=== PATIENT | female | born 1960 | race Caucasian/White ===

== ENCOUNTER → 2023-06-09 09:31 | Outpatient (REF) | payer MEDICARE, OTHER, SELFPAY ==
[2023-06-09 10:51] LABS: ALT (SGPT) 53 U/L (0-35); AST (SGOT) 46 U/L (14-36); Albumin 4.8 g/dl (3.5-5.0); Alkaline Phosphatase 49 U/L (38-126); Blood Urea Nitrogen 20 mg/dl (7-17); Calcium 10.5 mg/dl (8.4-10.2); Carbon Dioxide 31 mmol/L (22-30); Chloride 100 mmol/L (98-107); Glucose 91 mg/dl (70-99); Potassium 4.7 mmol/L (3.5-5.1); Sodium 138 mmol/L (135-145); Total Bilirubin 0.5 mg/dl (0.2-1.3); Total Protein 7.4 g/dl (6.3-8.2); eGFR > 60.00
[2023-06-09 11:04] LABS: Vitamin D, 25-OH*** 41.5 ng/mL (30-80)
== END ==
LOC: RAD 09:31
PROVIDERS: ATTENDING PHYSICIAN Internal Medicine Rheumatology; FAMILY PHYSICIAN Emergency Medicine
DX: E55.9 Vitamin D deficiency, unspecified (principal); M81.0 Age-related osteoporosis without current pathological fracture
CPT/HCPCS: 36415; 77080; 80053; 82306

== ENCOUNTER → 2023-06-15 06:43 | Outpatient (REF) | payer MEDICARE, OTHER, SELFPAY | LOC: RAD 06:43 | PROVIDERS: ATTENDING PHYSICIAN Surgery; FAMILY PHYSICIAN Emergency Medicine | DX: K59.02 Outlet dysfunction constipation (principal) | CPT/HCPCS: 74270 ==

== ENCOUNTER → 2023-07-27 09:17 | Outpatient (REF) | payer MEDICARE, OTHER, SELFPAY ==
[2023-07-27 10:04] LABS: % Eosinophils 1.5 % (0-6); % Immature Granulocytes 0.4 % (0-0.5); % Lymphocytes 29.6 % (20.5-51.1); % Monocytes 7.5 % (1.7-9.3); Absolute Basophils 0.1 10^3/uL (0-0.2); Absolute Eosinophils 0.1 10^3/uL (0-0.7); Absolute Lymphocytes 1.5 10^3/uL (1.2-3.4); Absolute Monocytes 0.4 10^3/uL (0.1-0.6); Absolute Neutrophils 3.1 10^3/uL (1.4-6.5); Hematocrit 43.9 % (37.0-47.0); Hemoglobin 14.4 g/dL (12.0-16.0); Mean Corp Hgb Conc. 32.8 g/dL (33.0-37.0); Mean Corpuscular Volume 94.4 fL (81.0-99.0); Mean Platelet Volume 10.8 fL (7.4-10.4); Nucleated Red Blood Cells % 0 %; Platelet Count 224 10^3/uL (130-400); Red Blood Cell Count 4.65 10^6/uL (4.20-5.40); Red Cell Dist. Width 13.2 % (11.5-14.5); White Blood Cell Count 5.2 10^3/uL (4.8-10.8)
[2023-07-27 10:39] LABS: Erythrocyte Sed Rate 10 mm/hour (0-20)
[2023-07-27 10:54] LABS: C-Reactive Protein < 5.00 mg/L (0.0-10.00)
[2023-07-27 12:11] LABS: ALT (SGPT) 30 U/L (0-35); AST (SGOT) 34 U/L (14-36); Albumin 4.5 g/dl (3.5-5.0); Alkaline Phosphatase 49 U/L (38-126); Blood Urea Nitrogen 22 mg/dl (7-17); Calcium 10.2 mg/dl (8.4-10.2); Carbon Dioxide 30 mmol/L (22-30); Chloride 100 mmol/L (98-107); Glucose 98 mg/dl (70-99); Potassium 4.9 mmol/L (3.5-5.1); Sodium 139 mmol/L (135-145); Total Bilirubin 0.6 mg/dl (0.2-1.3); Total Protein 7.1 g/dl (6.3-8.2); eGFR > 60.00
== END ==
LOC: REG 09:17
PROVIDERS: ATTENDING PHYSICIAN Internal Medicine Rheumatology; FAMILY PHYSICIAN Emergency Medicine
DX: M06.00 Rheumatoid arthritis without rheumatoid factor, unspecified site (principal); M81.0 Age-related osteoporosis without current pathological fracture
CPT/HCPCS: 36415; 80053; 85025; 85652; 86140

== ENCOUNTER 2023-08-31 06:24 | Outpatient (RCR) | payer MEDICARE, OTHER, SELFPAY | END 2023-08-31 23:59 | disposition home or self-care (01) | LOC: RPT 06:24 | PROVIDERS: ATTENDING PHYSICIAN Obstetrics & Gynecology; FAMILY PHYSICIAN Emergency Medicine | DX: N81.6 Rectocele (principal); K59.00 Constipation, unspecified; M62.81 Muscle weakness (generalized); R27.8 Other lack of coordination; Z73.6 Limitation of activities due to disability | CPT/HCPCS: 97162; 97530 ==

== ENCOUNTER 2023-10-02 11:54 | Outpatient (RCR) | payer MEDICARE, OTHER, SELFPAY | END 2023-10-02 23:59 | disposition home or self-care (01) | LOC: RPT 11:54 | PROVIDERS: ATTENDING PHYSICIAN Obstetrics & Gynecology; FAMILY PHYSICIAN Emergency Medicine | DX: N81.6 Rectocele (principal); K59.00 Constipation, unspecified; M62.81 Muscle weakness (generalized); R27.8 Other lack of coordination; Z73.6 Limitation of activities due to disability | CPT/HCPCS: 97140; 97530 ==

== ENCOUNTER → 2023-10-26 18:35 | Outpatient (REF) | payer MEDICARE, OTHER, SELFPAY | LOC: MRI 18:35 | PROVIDERS: FAMILY PHYSICIAN Emergency Medicine | DX: M26.623 Arthralgia of bilateral temporomandibular joint (principal) | CPT/HCPCS: 70336; A9575 ==

== ENCOUNTER 2023-10-30 10:57 | Outpatient (RCR) | payer MEDICARE, OTHER, SELFPAY | END 2023-10-30 14:14 | disposition home or self-care (01) | LOC: RPT 10:57 | PROVIDERS: ATTENDING PHYSICIAN Obstetrics & Gynecology; FAMILY PHYSICIAN Emergency Medicine | DX: N81.6 Rectocele (principal); K59.00 Constipation, unspecified; M62.81 Muscle weakness (generalized); Z73.6 Limitation of activities due to disability; R27.8 Other lack of coordination | CPT/HCPCS: 97140; 97530 ==

== ENCOUNTER 2023-11-13 07:49 | Inpatient (IN) | payer MEDICARE, OTHER, SELFPAY ==
[2023-11-08 09:44] VITALS: BMI 29.1
[2023-11-08 10:17] LABS: % Basophils 1.1 % (0-2); % Eosinophils 2.9 % (0-6); % Immature Granulocytes 0.2 % (0-0.5); % Lymphocytes 36.2 % (20.5-51.1); % Monocytes 8.7 % (1.7-9.3); % Neutrophils 50.9 % (42.2-75.2); Absolute Basophils 0.1 10^3/uL (0-0.2); Absolute Eosinophils 0.1 10^3/uL (0-0.7); Absolute Lymphocytes 1.6 10^3/uL (1.2-3.4); Absolute Monocytes 0.4 10^3/uL (0.1-0.6); Absolute Neutrophils 2.3 10^3/uL (1.4-6.5); Hematocrit 40.2 % (37.0-47.0); Hemoglobin 13.8 g/dL (12.0-16.0); Mean Corp Hgb Conc. 34.3 g/dL (33.0-37.0); Mean Corpuscular Hgb 31.1 pg (27.0-31.0); Mean Corpuscular Volume 90.5 fL (81.0-99.0); Mean Platelet Volume 10.8 fL (7.4-10.4); Nucleated Red Blood Cells % 0 %; Platelet Count 230 10^3/uL (130-400); Red Blood Cell Count 4.44 10^6/uL (4.20-5.40); Red Cell Dist. Width 12.5 % (11.5-14.5); White Blood Cell Count 4.5 10^3/uL (4.8-10.8)
[2023-11-08 10:25] LABS: PT 12.1 Sec (11.4-14.6)
[2023-11-08 10:26] LABS: APTT 27.3 Sec (23.4-35.0)
[2023-11-08 10:28] LABS: Blood Urea Nitrogen 18 mg/dl (7-17); Calcium 10.4 mg/dl (8.4-10.2); Chloride 105 mmol/L (98-107); Estimated Creatinine Clearance 85 ml/min; Glucose 110 mg/dl (70-99); Potassium 4.8 mmol/L (3.5-5.1); Sodium 143 mmol/L (135-145); eGFR > 60.00
[2023-11-08 10:33] LABS: Carbon Dioxide 25 mmol/L (22-30)
[2023-11-13] VITALS (30 sets, daily range): BP systolic 20–129; BP diastolic 58–97
--- NOTE | 2023-11-13 08:31 | W.SUR.PREOP ---
Pre-Operative Surgical Note
-
I have examined this patient prior to the performance of the scheduled procedure.
The patient's condition is unchanged from the time of the current History and
Physical and the patient is able to undergo the scheduled procedure.
[2023-11-13] MEDS: NSS 500 IV (08:35)
[2023-11-13] MEDS: PERIDEX 0.12% ORAL RINSE 15 ML PO (08:40)
[2023-11-13] MEDS: BACTROBAN NASAL 1 GRAM NASAL (08:40)
[2023-11-13 08:52] LABS: Glucose - Point of Care 110 mg/dl (70-99)
--- NOTE | 2023-11-13 11:18 | W.IMMPOSTOP ---
Surgical Immed Post Op Note
-
Primary Surgeon: Vick Dolan III, MD
Assisting Surgeon: Vahid Suarez MD
Pre-op Diagnosis: Neurogenic Thoracic Outlet Syndrome (L)
Post-op Diagnosis: Neuorgenic Thoracic Outlet Syndrome
Procedure Performed: Left 1st rib resection, anterior scalenectomy
Anesthesia Type: General
Specimen / Cultures: 1st rib, Anterior scalene muscle
Estimated Blood Loss: 25cc
Complications: None
Operative Findings:
A horizontal incision was made in the axilla. Electrocautery used to divide to the subcutaneous tissue. The axilla was bluntly dissected to expose the border of the 1st rib, anterior scalene muscle, axillary A/V, and brachial plexus. Anterior
scalene muscle was transected. Mid portion of 1st rib was freed and resected, ensuring wide margins. Hemostasis was confirmed. The parietal pleura was not obviously violated via saline-valsalva test. A ELIANA drain was placed in the axillary space.
Overlying tissue was closed.
--- NOTE | 2023-11-13 13:14 | OR.RPT ---
Operative Report
Operative Report
Date of Operation: 11/13/2023
Pre Op Diagnosis: Left-sided neurogenic thoracic Outlet Syndrome
Post Op Diagnosis: Left-sided neurogenic thoracic Outlet Syndrome
Procedure: Video-assisted left transaxillary first rib resection
Surgeon: Vick Dolan III, MD
Car Tracer: Vahid Suarez MD PGY-2
Anesthesia: General
Complications: None
Estimated Blood Loss: 25 cc
History and Indications for Procedure: 63-year-old female with neurogenic thoracic outlet syndrome
Procedure in Detail: Sharri Cartwright was correctly identified and placed supine on the operating table. After adequate induction of anesthesia she was positioned into a right lateral decubitus position on a beanbag with her left axilla and the
surgical field. All pressure points were closely inspected and padded with the assistance of the nursing and anesthesia staff. The left arm, axilla and chest were prepped and draped in the usual sterile fashion. Preoperative antibiotics were
administered. A timeout procedure was performed with the nursing and anesthesia staff confirming the patients identity as well as the nature and laterality of the procedure.
At the base of the left axillary hairline a horizontal incision was made. Dissection was carried straight down to the chest wall using electrocautery. I then tunneled up towards the first rib using blunt dissection, staying right along the chest
wall. Patient had a large body habitus and video assistance was used to aid in the visualization and exposure of the structures below. This was done through the open incision with a 10 mm, 30 degree laparoscope. Using a combination of
electrocautery and blunt dissection the subclavian vein, subclavian artery and anterior scalene muscle were exposed clearly over the superior margin of the first rib. Using a periosteal elevator and blunt finger dissection the inferior margin of the
first rib was exposed. Blunt finger dissection was used to gently sweep the pleura away from the under surface of the first rib. A right angle clamp was used with electrocautery to divide the anterior scalene muscle at its insertion onto the first
fib. Dissection was also continued posteriorly on the first rib. The brachial plexus was identified as well as the middle scalene muscle. The middle scalene muscle was divided carefully off of the insertion at the first rib margin. The anterior
and posterior cuts were made on the first rib with the distribution analyst under direct visualization and the intervening segment of rib was removed and sent to pathology. Additional bone margin was taken anteriorly and posteriorly on the first rib with a
rongeur and the space was widely decompressed. The posterior rib edge was well posterior of the brachial plexus. The bone edges anteriorly and posteriorly were inspected under direct visualization and with the laparoscope. The edges were softened
with a rasp. The space was closely inspected with direct visualization and with the laparoscope for hemostasis. Hemostasis was achieved. The space was filled with saline solution and no loss of volume was demonstrated. A Valsalva maneuver was
performed with saline in the wound space and no air bubbles were visualized. The saline was then suctioned away. The wound was then irrigated with saline. A #10 ELIANA drain was left high in the axilla and brought out through a separate stab incision at
the skin.
The wound was then closed in multiple layers and a sterile dressing applied.
The patient tolerated the procedure well and was taken to the PACU in stable condition.
Attestation: I was present and responsible for the entire procedure
Signed:
Vick Dolan III, MD
[facility] Vascular Surgery
[phone] (cell)
--- NOTE | 2023-11-13 13:29 | CON.INTV ---
Addendum entered and electronically signed by Paulie Kelley MD 11/14/23 15:21:
Correction to the note: She does not have right-sided shoulder pain, she actually has left-sided shoulder pain.
Original Note:
Consultation
Consultation Request
Date/Time Consultation Requested: 11/13/2023 - 130
Date/Time Consultation Performed: 11/13/2023 - 1331
Requesting Provider: CANDIDO Ley
Performing Provider: Paulie Kelley MD
Reason for Consultation: s/p rib resection; post-operative medical management
Medical History
-
Chief Complaint: Elective first rib resection
History of Present Illness:
63-year-old female never smoker with a past medical history of thoracic outlet syndrome, migraine headaches, depression, cervical DDD, fibromyalgia, GERD and history of SVT who presents with rib resection due to left-sided thoracic outlet syndrome.
Patient known to vascular surgery service with last visit on 10/11/[address] Dolan. She has a history of neurogenic thoracic outlet syndrome affecting her left brachial plexus, with left shoulder/scapular pain rating into her left arm with
numbness/tingling into the left hand has been present for >20 years. She has undergone PT but this was stopped as her muscles were 'too contracted.' She has significant tightness/spasms of the left side of her neck and around her left scapula.
Prior workup with MRI of her cervical spine + EMG were normal, per reports. Transaxillary first rib resection and anterior scalenectomy were reviewed including its benefits and risks. Of note, the patient is a Shinto and will not accept
blood transfusions. However she is willing to accept non cell-based plasma extenders. Today, she underwent video-assisted left transaxillary first rib resection. There were no complications, EBL was 25 cc. She was transferred to the ICU
postoperatively for further care and composition board press operator services consulted for additional management/recommendations.
Patient seen and evaluated today at bedside after her operation. Heart rate 99, SpO2 90% on the liter per minute nasal cannula and BP 129/85. She has no chest pain or shortness of breath. She does have right-sided shoulder pain and has a DEWATERING FILTERING SUPERVISOR pump
for this which is helping. She says she is developing a migraine and would like her medications for this (maxalt).
PMHx: Thoracic outlet syndrome, migraine headache, depression, gastritis, cervical disc disease, history of dry eyes/mouth, cervical/lumbar spine herniated disc, vestibular disorder, fibromyalgia, GERD, osteoarthritis, history of osteoporosis,
history of SVT
PSHx: Left knee arthroscopy, disc repair x 2, left shoulder surgery, right jaw arthrocentesis, carpal tunnel bilateral surgery, lumbar laminectomy, bilateral jaw surgery
Past Medical History
Past Medical History: Other (Above as per HPI)
Past Surgical History: Other (Above as per HPI)
Social History
Tobacco: Non-smoker (Never smoker)
Alcohol: None
Drug: None
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
Family History
Family History: CAD (Father, mother, paternal grandfather/grandmother), Hypertension (Sibling) and Other (Mother: Pulmonary hypertension; father: Hydrocephalus with shunt + glaucoma)
Allergies / Home Medications
Allergies
Allergy/AdvReac Type Severity Reaction Status Date / Time
No Known Allergies Allergy Verified 11/01/23 14:52
Home Medications
�Medication �Instructions �Recorded �Confirmed �Last Taken �Type
rizatriptan 10 mg tablet (Maxalt) 10 mg PO DAILYPRN PRN migraine 04/07/18 11/13/23 11/12/23 21:00 History
duloxetine 60 mg capsule,delayed 60 mg PO HS Depression 09/13/19 11/01/23 03/01/23 23:00 History
release
atorvastatin 10 mg tablet 10 mg PO DAILY High cholesterol 04/21/21 11/13/23 11/12/23 08:00 History
gabapentin 300 mg capsule 300 mg PO DAILY NERVE PAIN 08/09/21 11/13/23 11/12/23 21:00 History
metformin 500 mg tablet,extended 1,000 mg PO QPM Diabetes 08/09/21 11/13/23 11/12/23 21:00 History
release 24 hr
polyvinyl alcohol-povidone (PF) 1 drops BOTH EYES Q2HPRN PRN dry 08/09/21 11/13/23 11/13/23 06:00 History
1.4 %-0.6 % eye drops in a eye
dropperette (Refresh Classic (PF))
calcium carbonate 600 mg-vitamin 1 tab PO BID Supplement ##0 08/16/21 11/13/23 11/12/23 08:00 History
D3 20 mcg (800 unit) chewable
tablet (Caltrate 600 plus D)
tizanidine 4 mg tablet 4 mg PO BID nerve pain 08/16/21 11/13/23 11/12/23 21:00 History
simethicone 125 mg capsule (Gas 125 mg PO DAILYPRN PRN gas 08/18/21 11/01/23 02/28/23 History
Relief Extra Strength)
denosumab 60 mg/mL subcutaneous 60 mg SC [id number] osteoporosis 02/09/22 11/01/23 11/30/22 History
syringe (Prolia)
gabapentin 300 mg capsule 600 mg PO HS NERVE PAIN 02/09/22 11/01/23 03/01/23 History
multivitamin 1 tab PO DAILY Supplement 02/09/22 11/13/23 11/12/23 08:00 History
ondansetron HCl 4 mg tablet 4 mg PO PRN PRN nausea from 02/09/22 11/01/23 02/28/23 History
migraine
lidocaine 5 % topical patch 1 patch topical DAILY PRN 01/30/23 11/01/23 Unknown History
neck/spine prn pain
oxycodone-acetaminophen 7.5 mg-325 1 tab PO DAILY PRN pain 03/02/23 11/13/23 11/12/23 16:00 History
mg tablet (Percocet)
docusate sodium 100 mg tablet 100 mg PO BID 11/01/23 11/13/23 11/12/23 21:00 History
(Stool Softener)
famotidine 20 mg tablet (Pepcid) 20 mg PO PRN PRN GERD 11/01/23 11/13/23 11/12/23 08:00 History
propranolol 80 mg capsule,24 80 mg PO DAILY 11/01/23 11/13/23 11/12/23 08:00 History
hr,extended release (Inderal LA)
Review of Systems
-
History Source: Patient
All other systems: Negative unless noted
Vitals / Labs / Diagnostic Testing
Vital Signs
Temp Pulse Resp BP Pulse Ox
97.9 F 65 17 124/83 96
11/13/23 08:20 11/13/23 09:45 11/13/23 09:45 11/13/23 08:30 11/13/23 09:30
Diagnostic Testing:
Physical Exam
-
HEENT: Normocephalic and Anicteric
Cardiovascular: S1/S2 and Peripheral Edema (negative)
Respiratory: Wheeze (negative), Rales (negative), Rhonchi (negative) and Non-Labored Respirations
GI: Soft, Non Distended, Non Tender and Normal Bowel Sounds
Neurology: AO x 3 and Tremors (negative)
Skin: Warm and Dry
General: Respiratory Distress (negative), Pain (Right shoulder/scapula region), Chills (negative) and Sweats (negative)
Assessment
-
Assessment: 63-year-old female never smoker with a past medical history of thoracic outlet syndrome, migraine headaches, depression, cervical DDD, fibromyalgia, GERD and history of SVT who presents with rib resection due to left-sided thoracic
outlet syndrome. Patient known to vascular surgery service with last visit on 10/11/[address] Dolan. She has a history of neurogenic thoracic outlet syndrome affecting her left brachial plexus, with left shoulder/scapular pain rating into her
left arm with numbness/tingling into the left hand has been present for >20 years. She has undergone PT but this was stopped as her muscles were 'too contracted.' She has significant tightness/spasms of the left side of her neck and around her
left scapula. Prior workup with MRI of her cervical spine + EMG were normal, per reports. Transaxillary first rib resection and anterior scalenectomy were reviewed including its benefits and risks. Of note, the patient is a Shinto and
will not accept blood transfusions. However she is willing to accept non cell-based plasma extenders. Today, she underwent video-assisted left transaxillary first rib resection. There were no complications, EBL was 25 cc. She was transferred to
the ICU postoperatively for further care and composition board press operator services consulted for additional management/recommendations.
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
osteoporosis, history of SVT
Impression:
#Left-sided neurogenic thoracic outlet syndrome s/p video-assisted left transaxillary first rib resection � POD #0
#Right sided shoulder/scapula pain --> now on DEWATERING FILTERING SUPERVISOR pump post-operatively
#Depression
#Fibromyalgia
#History of SVT
#GERD
#Hx of migraine headaches
Plan:
Postoperative surgical intensive care unit monitoring
Supplemental oxygen as needed to maintain SpO2 >90-94%
prn nebulized bronchodilators
Incentive spirometry encouraged 10x per hour for at least 4 hrs a day
Aspiration precautions
Pain control - DEWATERING FILTERING SUPERVISOR pump
prn maxalt for migraines
Neuro and vascular checks per protocol
Maintain MAP>65
Replete electrolytes with K>4, Mg>2
Maintain euglycemia with goal BG 140-180
Vascular surgery following-correspondence and operative notes reviewed
Transfuse blood products as needed to keep Hb>7g/dL, and plt>50k (given post-operative status)
DVT prophylaxis
Early nutrition
Early mobilization
Critical care statement: A total of 44 minutes of critical care time was provided for this patient today. This includes management of unstable vital signs, evaluation of the patient at bedside, reviewing the patient's pertinent medical records
including radiographs, microbiology, laboratory evaluations, and discussion with primary team, consultants, pharmacy, nutrition, physical therapy, case management, charge nurse, critical care nursing, and respiratory therapy.
[2023-11-13] MEDS: DILAUDID 0.5 MG IV (13:57)
[2023-11-13 14:02] LABS: Glucose - Point of Care 105 mg/dl (70-99)
[2023-11-13] MEDS: DILAUDID 0.25 MG IV ×3 (14:11→14:43)
[2023-11-13] MEDS: NSS 1000 IV (14:36)
[2023-11-13 14:40] LABS: Hematocrit 40.2 % (37.0-47.0); Hemoglobin 13.5 g/dL (12.0-16.0); Mean Corp Hgb Conc. 33.6 g/dL (33.0-37.0); Mean Corpuscular Hgb 30.5 pg (27.0-31.0); Mean Corpuscular Volume 90.7 fL (81.0-99.0); Mean Platelet Volume 10.8 fL (7.4-10.4); Platelet Count 202 10^3/uL (130-400); Red Blood Cell Count 4.43 10^6/uL (4.20-5.40); Red Cell Dist. Width 12.5 % (11.5-14.5); White Blood Cell Count 7.5 10^3/uL (4.8-10.8)
[2023-11-13 14:44] LABS: Blood Urea Nitrogen 10 mg/dl (7-17); Calcium 9.3 mg/dl (8.4-10.2); Carbon Dioxide 27 mmol/L (22-30); Chloride 106 mmol/L (98-107); Estimated Creatinine Clearance 85 ml/min; Glucose 127 mg/dl (70-99); Potassium 4.4 mmol/L (3.5-5.1); Sodium 145 mmol/L (135-145); eGFR > 60.00
[2023-11-13 15:21] LABS: Magnesium 2.1 mg/dl (1.6-2.3); Phosphorus 2.8 mg/dl (2.5-4.5)
--- NOTE | 2023-11-13 15:25 | PTCARENOTE ---
Received pt postop from PACU via bed awake and alert. Left arm elevate on pillow. Left upper extremity cool with good capillary refill. Palpable radial pulses, doppler ulnar pulses. Left lateral chest/back dressing CDI, ELIANA drain to bulb suction with
SS fluid. Right hand #20g protective catheter with 0.9NSS@80ml/hr, right FA #18g protective catheter flushed and patent. +pedal pulses. No edema. Lungs CTA anteriorly. 2 liters nasal cannula. +BSX4. Bladder scanned for 257ml's. Protective right hip
SBD removed, partially off. She was informed of theplan of care regarding bedrest tonight then OOB in the AM after the surgeon assesses her at the bedside. Also informed of the use of Hydromorphone LOG YARD MANAGER for pain management. She verbalized her
understanding. Oriented to the unit and the use of the call trevino. Safe environment maintained.
--- NOTE | 2023-11-13 15:26 | TRANSFER ---
Patient transferred to ICU, report to [facility], phone and [facility] bedside. Patient restful, mild yo moderate pain to left axilla/chest with movement. VSS, dressings and drain checked. Adrian Lancaster RN BSN.
[2023-11-13] MEDS: DILAUDID PCA 30 IV (15:50)
[2023-11-13] MEDS: OFIRMEV 100 IV (16:48)
[2023-11-13] MEDS: MAXALT MLT (ORALLY DISINTEGRATING) 10 MG PO (17:22)
[2023-11-13 17:54] LABS: Glucose - Point of Care 120 mg/dl (70-99)
[2023-11-13] MEDS: GLUCOPHAGE XR EXTENDED RELEASE 1000 MG PO (18:27)
[2023-11-13] MEDS: COLACE 100 MG PO (19:40)
[2023-11-13] MEDS: OSCAL 500 + D 500 MG PO (19:40)
[2023-11-13] MEDS: ZANAFLEX 4 MG PO (19:40)
[2023-11-13] MEDS: HEPARIN 5000 UNITS SC (19:40)
--- NOTE | 2023-11-13 20:00 | PTCARENOTE ---
Rec'd pt resting in bed, at bedside, has chronic facial pain, FIELD SERVICE ENGINEER dilaudid- 0 basal, able to rec 0.2mg q10min for hourly max 1.2, pain under control, ARRIAZA, follows commands, ST, bp stable, left chest incis w/ scant ses drainage noted, ELIANA
draining 20ml SES fluid, left rad pulse palpabe, left ulnar pulse via doppler, left hand warm, pulses ox on left finger, good sensation left arm, q1h NV checks left arm maintained, O2 2 liters nc, lungs clear, sat 94, enc to use IS- reaches 1000ml,
hypo bowel sounds,no bm, abd obese, soft, no n/v,poor appetite, purewick placed- voided 200ml yellow urine
[2023-11-13] MEDS: MIRALAX 17 GRAMS PO (20:23)
--- NOTE | 2023-11-13 20:24 | PTCARENOTE ---
miralax 17gm po given for constipation asrequested
[2023-11-13] MEDS: CYMBALTA DELAYED RELEASE 60 MG PO (21:04)
[2023-11-13] MEDS: NEURONTIN 600 MG PO (21:04)
[2023-11-13 21:15] LABS: Glucose - Point of Care 135 mg/dl (70-99)
[2023-11-13] MEDS: MYLICON 80 MG PO (21:22)
--- NOTE | 2023-11-13 21:23 | PTCARENOTE ---
simethicone 80 mg po given for gas
[2023-11-14] VITALS (41 sets, daily range): BP systolic 72–147; BP diastolic 49–91; BMI 29.4
--- NOTE | 2023-11-14 | PTCARENOTE ---
Sys reviewed, changes noted, CHG bath done, linens changed
[2023-11-14] MEDS: NSS 1000 IV (01:01)
[2023-11-14 03:37] LABS: Hematocrit 36.2 % (37.0-47.0); Hemoglobin 12.3 g/dL (12.0-16.0); Mean Corpuscular Hgb 31.8 pg (27.0-31.0); Mean Corpuscular Volume 93.5 fL (81.0-99.0); Mean Platelet Volume 10.8 fL (7.4-10.4); Platelet Count 174 10^3/uL (130-400); Red Blood Cell Count 3.87 10^6/uL (4.20-5.40); Red Cell Dist. Width 12.7 % (11.5-14.5); White Blood Cell Count 8.4 10^3/uL (4.8-10.8)
[2023-11-14 03:47] LABS: INR 1.08; PT 13.8 Sec (11.4-14.6)
[2023-11-14 03:48] LABS: APTT 23.4 Sec (23.4-35.0)
[2023-11-14 03:59] LABS: Blood Urea Nitrogen 9 mg/dl (7-17); Calcium 8.9 mg/dl (8.4-10.2); Carbon Dioxide 25 mmol/L (22-30); Chloride 108 mmol/L (98-107); Estimated Creatinine Clearance 99 ml/min; Glucose 116 mg/dl (70-99); Potassium 4.6 mmol/L (3.5-5.1); Sodium 141 mmol/L (135-145); eGFR > 60.00
[2023-11-14] MEDS: OFIRMEV 100 IV ×3 (04:19→20:00)
--- NOTE | 2023-11-14 04:20 | PTCARENOTE ---
lobo reviewed, ofirmev 1gm iv given for R faciial pain
--- NOTE | 2023-11-14 07:52 | W.PN.VS ---
Addendum entered and electronically signed by Rich Alfaro MD 11/14/23 08:18:
Seen and examined with ROSA Hameed and ROSA Hoover earlier this a.m. Patient without significant complaints, some expected postoperative pain. Reasonably controlled. No numbness or weakness in the left arm. Left upper extremity/axilla incision
site/dressing clean dry and intact. No hematoma noted. No chest wall fullness or crepitus. ELIANA drain serosanguineous total of 75 cc over 24 hours. Chest x-ray reviewed. I do not see any obvious pneumothorax. Drain reasonably position. Plan/ As
noted and discussed below. Continue ELIANA drain for today.
Original Note:
Today's Communication / Plan
-
Seen and assessed with Dr. Alfaro
Assessment/Plan
-
POD #1 left first rib resection
Plan:
-Transition DIRECTOR OF RESIDENTIAL SERVICES to oral medications
-Out of bed/ambulate
-Physical therapy
-Transfer to telemetry
-Continue drain for today
-Likely DC tomorrow if pain well-controlled
Subjective Data
-
Date of Service: November 14, 2023
Patient seen at bedside this a.m. Dr. Alfaro. Patient offers no complaints at this time. No events overnight. DIRECTOR OF RESIDENTIAL SERVICES running for pain control
Objective Data
-
Vital Signs
Temp Pulse Resp BP Pulse Ox
98 F 72 12 99/63 96
11/14/23 04:00 11/14/23 06:00 11/14/23 06:00 11/14/23 06:00 11/14/23 06:00
Intake and Output
11/13/23 11/14/23 11/15/23
06:59 06:59 06:59
Intake Total 1918.2 / 1918.2
Output Total 375 / 375
Balance 1543.2 / 1543.2
Intake:
Oral fluids 209 / 209
IV fluids (Total) 1509.2 / 1509.2
NS 150 / 150
Nss 1,000 ml @ 80 mls/hr IV . 1315 / 1315
[id number] CRISTAL Rx#:[id number]
Nss 500 ml @ 40 mls/hr IV . 40 / 40
[id number] CRISTAL Rx#:[id number]
DIRECTOR OF RESIDENTIAL SERVICES dilaudid 4.2 / 4.2
IV piggybacks 200 / 200
Output:
Drain Output (Total) 75 / 75
Left Chest Blaise-Flowers 75 / 75
Urine, Voided 300 / 300
Other:
How many times incontinent 1
MODERATE amount urine
Lab Results
11/14/23 03:24
11/14/23 03:24
Calcium 8.9 mg/dl (8.4-10.2) 11/14/23 03:24
Phosphorus 2.8 mg/dl (2.5-4.5) 11/13/23 14:19
Magnesium 2.1 mg/dl (1.6-2.3) 11/13/23 14:19
Physical Exam
-
AAOx3
No tachypnea on room air
No tachycardia
Axillary surgical site dressing clean, dry, intact. No drainage noted, soft
Left hand warm, palpable radial pulse
--- NOTE | 2023-11-14 08:00 | PTCARENOTE ---
Pt AOx3, assisted OOB to chair, tolerated well. c/o L chest/flank pain when coughing, minimal coughing observed. Dressing observed w/ small amount of old drainage noted. L extremity neurovascular checks wnl. IS encouraged. LSCTA, 93% on RA. L ELIANA w/
sersang output, 35ml emptied at this time. Assisted pt to use the bathroom, Purewick removed. HR NSR, ST 110-130's when ambulating.
[2023-11-14 08:08] LABS: Glucose - Point of Care 110 mg/dl (70-99)
--- NOTE | 2023-11-14 08:12 | W.PN.INTV ---
Today's Communication / Plan
Recommendations
Up OOB as tolerated
Pain control
Maintain MAP >65, SBP >90�100
Postop management as per vascular surgery
PT/OT
Patient is stable for transfer out of ICU to telemetry. This was confirmed with vascular surgery. Senior Net Engineer/Pulmonary service will now sign off. Please reconsult if there are any additional questions/concerns, or if patient's respiratory status
deteriorates.
Assessment
-
Assessment: 63-year-old female never smoker with a past medical history of thoracic outlet syndrome, migraine headaches, depression, cervical DDD, fibromyalgia, GERD and history of SVT who presents with rib resection due to left-sided thoracic
outlet syndrome. Patient known to vascular surgery service with last visit on 10/11/[address] Dolan. She has a history of neurogenic thoracic outlet syndrome affecting her left brachial plexus, with left shoulder/scapular pain rating into her
left arm with numbness/tingling into the left hand has been present for >20 years. She has undergone PT but this was stopped as her muscles were 'too contracted.' She has significant tightness/spasms of the left side of her neck and around her
left scapula. Prior workup with MRI of her cervical spine + EMG were normal, per reports. Transaxillary first rib resection and anterior scalenectomy were reviewed including its benefits and risks. Of note, the patient is a Protestant and
will not accept blood transfusions. However she is willing to accept non cell-based plasma extenders. Today, she underwent video-assisted left transaxillary first rib resection. There were no complications, EBL was 25 cc. She was transferred to
the ICU postoperatively for further care and field crop ii farmworker services consulted for additional management/recommendations.
Chronic conditions AIR CARGO SPECIALIST: Thoracic outlet syndrome, migraine headache, depression, gastritis, cervical disc disease, history of dry eyes/mouth, cervical/lumbar spine herniated disc, vestibular disorder, fibromyalgia, GERD, osteoarthritis, history of
osteoporosis, history of SVT
Impression:
#Left-sided neurogenic thoracic outlet syndrome s/p video-assisted left transaxillary first rib resection � POD #1
#Left sided shoulder/scapula pain
#Depression
#Fibromyalgia
#History of SVT
#GERD
#Hx of migraine headaches
Plan:
Postoperative management as per vascular surgery
Supplemental oxygen as needed to maintain SpO2 >90-94% - wean as tolerated
prn nebulized bronchodilators
Incentive spirometry encouraged 10x per hour for at least 4 hrs a day
Aspiration precautions
Pain control but monitor BP, keeping SBP>90-100mmHg, and MAP>65
prn maxalt for migraines
Neuro and vascular checks per protocol
Maintain MAP>65
Replete electrolytes with K>4, Mg>2
Maintain euglycemia with goal BG 140-180
Vascular surgery following-correspondence and operative notes reviewed
Transfuse blood products as needed to keep Hb>7g/dL, and plt>50k (given post-operative status)
DVT prophylaxis
Early nutrition
Early mobilization
Patient is stable for transfer out of ICU to telemetry. This was confirmed with vascular surgery. Senior Net Engineer/Pulmonary service will now sign off. Thank you for allowing us to be involved in the care of this patient. Please reconsult if there
are any additional questions/concerns, or if patient's respiratory status deteriorates.
Total time spent today was 55 minutes for this encounter. Time includes reviewing laboratory test/imaging results, reviewing pertinent medical records, obtaining and reviewing medical history, performing an appropriate exam, ordering medications,
tests and procedures. Time also includes documentation of this encounter, coordinating patient care and communicating with other healthcare professionals. Total time does not include separately billed tests performed on this date of service.
Subjective Dataa
Subjective Data
Date of Service:
Date of Service: November 14, 2023
Chief Complaint: Senior Net Engineer Follow Up
Subjective:
Patient seen and evaluated today at bedside. Having severe pain in her left shoulder blade. Also developing a migraine. Currently on 2 L/min nasal cannula. Heart rate 78, saturating 97% on 2L/min and BP 90/64. She is awake, alert, answering all
questions appropriately. Patient's , David, at bedside. She denies chest pain, abdominal pain, nausea, fevers or chills.
Review of Systems
General: Other (Negative unless mentioned above)
Objective Data
Data Reviewed
Vital Signs / I&O / Oxygen:
Vital Signs
Temp Pulse Resp BP Pulse Ox
98.7 F 72 12 99/63 96
11/14/23 08:11 11/14/23 06:00 11/14/23 06:00 11/14/23 06:00 11/14/23 06:00
Intake and Output
11/13/23 11/14/23 11/15/23
06:59 06:59 06:59
Intake Total 1918.2 / 1918.2
Output Total 375 / 375
Balance 1543.2 / 1543.2
SaO2 96
Nasal Cannula flow liters per 2
minute
Physical Exam
General: Respiratory Distress (negative), Pain (Left shoulder blade/shoulder), Chills (negative) and Sweats (negative)
HEENT: Normocephalic, Anicteric and Moist Mucous Membranes
Cardiovascular: S1-S2 and Peripheral Edema (negative)
Respiratory: Wheeze (negative), Crackles (negative), Rhonchi (negative) and Non-Labored Respirations
GI: Soft, Non Distended, Non Tender and Normal Bowel Sounds
Neurology: AO x 3 and Tremors (negative)
Skin: Warm and Dry
Labs/Micro/Reports
Lab Data
11/14/23 03:24
11/14/23 03:24
Laboratory Results
11/14/23
03:24
PT 13.8
INR 1.08
APTT 23.4
[2023-11-14] MEDS: LIPITOR 10 MG PO (08:44)
[2023-11-14] MEDS: OSCAL 500 + D 500 MG PO ×2 (08:44→21:04)
[2023-11-14] MEDS: NEURONTIN 300 MG PO (08:45)
[2023-11-14] MEDS: COLACE 100 MG PO ×2 (08:46→21:03)
[2023-11-14] MEDS: HEPARIN 5000 UNITS SC ×2 (08:46→21:03)
[2023-11-14] MEDS: THERAGRAN 1 TABLET PO (08:47)
[2023-11-14] MEDS: ZANAFLEX 4 MG PO (08:47)
--- NOTE | 2023-11-14 09:00 | PTCARENOTE ---
Dilaudid SALES ASSOCIATE FISHING dc'd and IVFs capped as ordered. Pain management discussed w/ patient.
[2023-11-14] MEDS: MAXALT MLT (ORALLY DISINTEGRATING) 10 MG PO (09:09)
[2023-11-14] MEDS: INDERAL LA PO (10:12)
[2023-11-14] MEDS: NSS 250 IV (10:30)
--- NOTE | 2023-11-14 11:12 | PTCARENOTE ---
Pt's BP low 87/57 hr 60's, pt states she feels slightly drowsy, pt states this happens to her after taking Zanaflex which she had this morning. Propranolol held this morning. Donna PABON notified, who came to assess pt at bedside. NS 250ml bolus
given as ordered. Pt reported visual changes initially on PA's exam, but those cleared almost immediately. Pt states this happens to her at times prior to a migraine. Plan to given dose of Ofirmev, pt already received Maxalt this morning. BP
improved to 99/57, resting comfortably, easily arousable. Neurovascular checks remain wnl.
[2023-11-14 11:57] LABS: Glucose - Point of Care 133 mg/dl (70-99)
[2023-11-14] MEDS: ProAmatine 5 MG PO (12:32)
--- NOTE | 2023-11-14 13:33 | CM ---
CM following re: discharge planning.
Reviewed pt's chart, met with pt.
Pt is a 63 year old female, admitted with primary dx of POD #1 left first rib resection.
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 Pt has no previous hx of VN/SNF and does have a pair of crutches & spc for use if needed.
PT and OT evaluations on hold due to pt being hypotensive.
Pharmacy: [facility] on [address] [place] & maintenance meds are filled thru [facility]
PCP-Olinda Flynn
D/C plan: home with anticipated no needs or VN if recommended by PT.
CM will fallow with discharge plan updates as hospitalization progresses
[2023-11-14] MEDS: DILAUDID 2 MG PO (14:10)
--- NOTE | 2023-11-14 15:00 | PTCARENOTE ---
Blood pressure improved. 2mg PO Dilaudid given for pain. Assisted OOB to chair, tolerated well. Plan to transfer to .
[2023-11-14] MEDS: PERCOCET 5/325 1 TABLET PO (16:25)
--- NOTE | 2023-11-14 16:51 | PTCARENOTE ---
1620: Patient arrived to 2S. Patient tearful and complaining of 10/10 pain in L shoulder. Patient states that she is 'unable to move L shoulder because it is too much pain'. Medicated per MAY. Patient reports 'a little bit of decreased sensation to
L hand'. Pulses palpable with doppler in L wrist. Donna Hameed INSURANCE ANALYST to bedside. Care ongoing at this time.
[2023-11-14 17:23] LABS: Glucose - Point of Care 87 mg/dl (70-99)
[2023-11-14] MEDS: DILAUDID PCA 30 IV (17:38)
[2023-11-14] MEDS: D5/0.45%NACL 1000 IV (17:48)
[2023-11-14] MEDS: GLUCOPHAGE XR EXTENDED RELEASE 1000 MG PO (18:16)
[2023-11-14] MEDS: NEURONTIN 600 MG PO (21:04)
[2023-11-14] MEDS: CYMBALTA DELAYED RELEASE 60 MG PO (21:04)
[2023-11-14 21:23] LABS: Glucose - Point of Care 119 mg/dl (70-99)
[2023-11-15] VITALS (7 sets, daily range): BP systolic 95–130; BP diastolic 64–88; PULSE 110
[2023-11-15 01:50] LABS: % Basophils 0.4 % (0-2); % Eosinophils 1.7 % (0-6); % Immature Granulocytes 0.2 % (0-0.5); % Lymphocytes 25.9 % (20.5-51.1); % Monocytes 9.5 % (1.7-9.3); % Neutrophils 62.3 % (42.2-75.2); Absolute Eosinophils 0.2 10^3/uL (0-0.7); Absolute Lymphocytes 2.4 10^3/uL (1.2-3.4); Absolute Monocytes 0.9 10^3/uL (0.1-0.6); Absolute Neutrophils 5.7 10^3/uL (1.4-6.5); Hematocrit 35.5 % (37.0-47.0); Hemoglobin 11.9 g/dL (12.0-16.0); Mean Corp Hgb Conc. 33.5 g/dL (33.0-37.0); Mean Corpuscular Hgb 30.4 pg (27.0-31.0); Mean Corpuscular Volume 90.8 fL (81.0-99.0); Mean Platelet Volume 10.4 fL (7.4-10.4); Nucleated Red Blood Cells % 0 %; Platelet Count 185 10^3/uL (130-400); Red Blood Cell Count 3.91 10^6/uL (4.20-5.40); Red Cell Dist. Width 12.8 % (11.5-14.5); White Blood Cell Count 9.1 10^3/uL (4.8-10.8)
--- NOTE | 2023-11-15 02:00 | PTCARENOTE ---
TT Vascular oncall re pts tachycardia. Physician oncall ordered labs, EKG and IVF bolus. HR decreased for upper 120's to low 100's. Labs WNL. EKG shows sinus tach. pt resting comfortably at this time, assessment ongoing.
[2023-11-15] MEDS: NSS 500 IV (02:26)
[2023-11-15 06:33] LABS: Hematocrit 35.8 % (37.0-47.0); Hemoglobin 11.7 g/dL (12.0-16.0); Mean Corp Hgb Conc. 32.7 g/dL (33.0-37.0); Mean Corpuscular Hgb 30.2 pg (27.0-31.0); Mean Corpuscular Volume 92.3 fL (81.0-99.0); Mean Platelet Volume 11.1 fL (7.4-10.4); Platelet Count 179 10^3/uL (130-400); Red Blood Cell Count 3.88 10^6/uL (4.20-5.40); Red Cell Dist. Width 12.8 % (11.5-14.5)
[2023-11-15 07:21] LABS: Blood Urea Nitrogen 9 mg/dl (7-17); Carbon Dioxide 27 mmol/L (22-30); Chloride 104 mmol/L (98-107); Estimated Creatinine Clearance 99 ml/min; Glucose 122 mg/dl (70-99); Potassium 3.8 mmol/L (3.5-5.1); Sodium 139 mmol/L (135-145); eGFR > 60.00
[2023-11-15 08:01] LABS: Glucose - Point of Care 120 mg/dl (70-99)
[2023-11-15] MEDS: OSCAL 500 + D 500 MG PO ×2 (08:08→21:21)
[2023-11-15] MEDS: COLACE 100 MG PO ×2 (08:08→21:20)
[2023-11-15] MEDS: NEURONTIN 300 MG PO (08:08)
[2023-11-15] MEDS: HEPARIN 5000 UNITS SC ×2 (08:08→21:23)
[2023-11-15] MEDS: LIPITOR 10 MG PO (08:08)
[2023-11-15] MEDS: THERAGRAN 1 TABLET PO (08:08)
[2023-11-15] MEDS: MAXALT MLT (ORALLY DISINTEGRATING) 10 MG PO ×2 (08:09→10:11)
[2023-11-15] MEDS: INDERAL LA PO (08:14)
--- NOTE | 2023-11-15 08:38 | W.PN.VS ---
Today's Communication / Plan
-
Seen and assessed with Dr. Dolan
Assessment/Plan
-
POD #2 left first rib resection
Plan:
-Continue VENEER PRESS OPERATOR
-Add scheduled Toradol, PRN Tums if needed
-Add Zofran for nausea
-P.o. Tylenol
-Chest xray this am
-OT/PT if tolerates
-Out of bed/ambulate if tolerates
-Continue drain for today
Subjective Data
-
Date of Service: November 15, 2023
Patient seen at bedside this a.m. with Dr. Dolan. Patient complains of left shoulder pain that is different from her preop pain. Denies numbness/tingling/decreased sensation. Remained on VENEER PRESS OPERATOR overnight
Objective Data
-
Vital Signs
Temp Pulse Resp BP Pulse Ox
98.8 F 107 16 95/64 96
11/15/23 08:01 11/15/23 08:01 11/15/23 08:01 11/15/23 08:01 11/15/23 08:01
Intake and Output
11/14/23 11/15/23 11/16/23
06:59 06:59 06:59
Intake Total 1918.2 / 1998.2 2360.8 / 2360.8
Output Total 375 / 375 615 / 615
Balance 1543.2 / 1623.2 1745.8 / 1745.8
Intake:
Oral fluids 209 / 209 960 / 960
IV fluids (Total) 1509.2 / 1589.2 1300.8 / 1300.8
NS 150 / 150
Nss 1,000 ml @ 80 mls/hr IV . 1315 / 1395 240 / 240
[id number] CRISTAL Rx#:[id number]
Nss 500 ml @ 40 mls/hr IV . 40 / 40
[id number] CRISTAL Rx#:[id number]
VENEER PRESS OPERATOR dilaudid 4.2 / 4.2 0.8 / 0.8
IV piggybacks 200 / 200 100 / 100
Output:
Drain Output (Total) 75 / 75 135 / 135
Left Chest Blaise-Flowers 75 / 75 135 / 135
Urine, Voided 300 / 300 480 / 480
Other:
Number of approximated MODERATE 1
amounts of urine
Number of approximated LARGE 1
amounts of urine
How many times incontinent 1
MODERATE amount urine
Lab Results
11/15/23 04:51
11/15/23 04:51
Calcium 9.0 mg/dl (8.4-10.2) 11/15/23 04:51
Phosphorus 2.8 mg/dl (2.5-4.5) 11/13/23 14:19
Magnesium 2.1 mg/dl (1.6-2.3) 11/13/23 14:19
Physical Exam
-
AAOx3
No tachypnea on room air
No tachycardia at this time
Axillary surgical site dressing clean, dry, intact. No drainage noted, soft
Left hand warm, palpable radial pulse
[2023-11-15] MEDS: TORADOL 30 MG IV ×4 (10:11→23:47)
[2023-11-15 12:07] LABS: Glucose - Point of Care 148 mg/dl (70-99)
--- NOTE | 2023-11-15 14:45 | CM ---
Case management following for discharge planning
POD #2 left first rib resection
PT/OT recs - outpatient PT - will need Rx
CM will continue to follow for d/c needs
Plan - anticipate home with outpatient services when medically ready
[2023-11-15 16:40] LABS: Glucose - Point of Care 77 mg/dl (70-99)
[2023-11-15] MEDS: GLUCOPHAGE XR EXTENDED RELEASE 1000 MG PO (17:27)
[2023-11-15] MEDS: NEURONTIN 600 MG PO (21:21)
[2023-11-15] MEDS: CYMBALTA DELAYED RELEASE 60 MG PO (21:21)
[2023-11-15] MEDS: TYLENOL 650 MG PO (21:36)
[2023-11-15 22:08] LABS: Glucose - Point of Care 103 mg/dl (70-99)
[2023-11-16] MEDS: MAXALT MLT (ORALLY DISINTEGRATING) 10 MG PO (03:13)
[2023-11-16] MEDS: MIRALAX 17 GRAMS PO (03:13)
[2023-11-16 03:25] VITALS: BP 142/85
[2023-11-16] MEDS: TORADOL 30 MG IV ×2 (05:56→13:10)
[2023-11-16 06:26] LABS: Hemoglobin 11.6 g/dL (12.0-16.0); Mean Corp Hgb Conc. 34.1 g/dL (33.0-37.0); Mean Corpuscular Hgb 31.5 pg (27.0-31.0); Mean Corpuscular Volume 92.4 fL (81.0-99.0); Mean Platelet Volume 11.1 fL (7.4-10.4); Platelet Count 179 10^3/uL (130-400); Red Blood Cell Count 3.68 10^6/uL (4.20-5.40); Red Cell Dist. Width 12.6 % (11.5-14.5); White Blood Cell Count 4.9 10^3/uL (4.8-10.8)
[2023-11-16 06:55] LABS: Blood Urea Nitrogen 8 mg/dl (7-17); Calcium 9.7 mg/dl (8.4-10.2); Carbon Dioxide 28 mmol/L (22-30); Chloride 104 mmol/L (98-107); Estimated Creatinine Clearance 99 ml/min; Glucose 117 mg/dl (70-99); Potassium 3.8 mmol/L (3.5-5.1); Sodium 141 mmol/L (135-145); eGFR > 60.00
[2023-11-16 07:05] VITALS: BP 127/84
--- NOTE | 2023-11-16 07:34 | W.PN.VS ---
Addendum entered and electronically signed by Rich Alfaro MD 11/16/23 10:57:
Seen and examined earlier this a.m. with SENIOR APPLICATION SECURITY CONSULTANT Kiko and ROSA Hameed. Agree with findings as noted below. Patient was doing well. She noted her pain was improved. Her preoperative left upper extremity/scapular symptoms seem to be resolved
postoperatively. Left axillary incision is clean dry and intact. ELIANA drainage serous/minimally serosanguineous. Drainage significantly decreased with 30 cc over the last 24 hours. Left hand is warm with good motor/sensory function and palpable
radial pulse. Plan/as discussed and noted below. Likely discontinue drain as long as no significant further drainage this morning. And PT/OT/discharge planning.
Original Note:
Today's Communication / Plan
-
Seen and assessed Dr. Alfaro
Assessment/Plan
-
POD #3 left first rib resection
Plan:
-Switch MD OPHTHALMOLOGIST to p.o.'s
-Continue scheduled Toradol, PRN Tums if needed
-P.o. Tylenol as needed
-OT/PT
-Out of bed/ambulate
-Continue drain for now, will reassess this afternoon
Subjective Data
-
Date of Service: November 16, 2023
Patient seen sitting out to the chair this morning feeling very well. Patient is upbeat, has no complaints.
Objective Data
-
Vital Signs
Temp Pulse Resp BP Pulse Ox
98.3 F 100 14 142/85 93
11/16/23 03:25 11/16/23 03:25 11/16/23 04:00 11/16/23 03:25 11/16/23 04:00
Intake and Output
11/15/23 11/16/23 11/17/23
06:59 06:59 06:59
Intake Total 2360.8 / 2360.8 1520 / 1520
Output Total 615 / 615 30 / 30
Balance 1745.8 / 1745.8 1490 / 1490
Intake:
Oral fluids 960 / 960 1040 / 1040
IV fluids (Total) 1300.8 / 1300.8 480 / 480
Nss 1,000 ml @ 80 mls/hr IV . 240 / 240
[id number] CRISTAL Rx#:[id number]
MD OPHTHALMOLOGIST dilaudid 0.8 / 0.8
IV piggybacks 100 / 100
Output:
Drain Output (Total) 135 / 135 30 / 30
Left Chest Blaise-Flowers 135 / 135 30 / 30
Urine, Voided 480 / 480
Other:
Number of approximated MODERATE 1 3
amounts of urine
Number of approximated LARGE 1
amounts of urine
Lab Results
11/16/23 06:04
11/16/23 06:04
Calcium 9.7 mg/dl (8.4-10.2) 11/16/23 06:04
Phosphorus 2.8 mg/dl (2.5-4.5) 11/13/23 14:19
Magnesium 2.1 mg/dl (1.6-2.3) 11/13/23 14:19
Physical Exam
-
AAOx3
No tachypnea on room air
No tachycardia at this time
Axillary surgical site clean, dry, intact. No drainage noted, soft
ELIANA site dressing replaced
Left hand warm, palpable radial pulse
[2023-11-16 07:57] LABS: Glucose - Point of Care 116 mg/dl (70-99)
[2023-11-16] MEDS: INDERAL LA 80 MG PO (09:44)
[2023-11-16] MEDS: DILAUDID 2 MG PO ×3 (09:44→22:57)
[2023-11-16] MEDS: NEURONTIN 300 MG PO (09:44)
[2023-11-16] MEDS: OSCAL 500 + D 500 MG PO ×2 (09:44→20:27)
[2023-11-16] MEDS: THERAGRAN 1 TABLET PO (09:45)
[2023-11-16] MEDS: HEPARIN 5000 UNITS SC ×2 (09:45→20:27)
[2023-11-16] MEDS: LIPITOR 10 MG PO (09:45)
[2023-11-16] MEDS: COLACE 100 MG PO ×2 (09:45→20:27)
--- NOTE | 2023-11-16 11:16 | PN.CDI ---
CDI
- -
CDI:
Physician Documentation Request
Admit Date: 11/13/23 07:49
Dear Vascular,
Please review the following and provide your response in the progress notes.
Clinical Indicators:
The diagnosis of pleural effusion and atelectasis were included in the signed 11/14 CXR.
- 11/14 CXR 'Small left pleural effusion. Minor atelectasis at left lung base'
- 11/12-11/13 Incentive spirometry 1000ml
- RN assessments indicate shallow respiratory patterns
Please indicate in your progress notes if you are in agreement that the above diagnosis is valid for this patient:
____ - Pleural effusion and/or atelectasis is/are a valid diagnosis (Please include it in your progress notes)
____ - Pleural effusion and/or atelectasis is not a valid diagnosis for this patient
____ - Pleural effusion and/or atelectasis is not yet confirmed but remains a suspected condition
____ - Other
Use of terms such as suspected, likely, concern for, or probable are acceptable for a diagnosis that is being evaluated, monitored or treated as if it exists and can be coded in the inpatient setting, when documented at the time of discharge.
Thank you,
Jada Perdomo RN
CDI Specialist
Please use your independent medical judgment in providing your response.
[2023-11-16 12:07] LABS: Glucose - Point of Care 76 mg/dl (70-99)
--- NOTE | 2023-11-16 14:04 | W.PN.UPDATE ---
Update Note
Progress Note Update
Left lateral drain removed, site CDI. Patient tolerated well.
[2023-11-16 15:09] VITALS: BP 108/68
[2023-11-16] MEDS: GLUCOPHAGE XR EXTENDED RELEASE 1000 MG PO (17:30)
[2023-11-16 17:31] LABS: Glucose - Point of Care 73 mg/dl (70-99)
[2023-11-16 21:16] LABS: Glucose - Point of Care 100 mg/dl (70-99)
[2023-11-16] MEDS: NEURONTIN 600 MG PO (21:55)
[2023-11-16] MEDS: CYMBALTA DELAYED RELEASE 60 MG PO (21:55)
[2023-11-16] MEDS: DULCOLAX 10 MG RECTAL (22:12)
[2023-11-16 23:00] VITALS: BP 132/82
[2023-11-17] MEDS: MAXALT MLT (ORALLY DISINTEGRATING) 10 MG PO (03:08)
[2023-11-17 03:12] VITALS: BP 139/79
[2023-11-17 07:22] VITALS: BP 134/79
[2023-11-17] MEDS: DILAUDID 2 MG PO ×2 (07:24→12:11)
[2023-11-17 07:29] LABS: Glucose - Point of Care 91 mg/dl (70-99)
[2023-11-17 07:39] LABS: Hematocrit 35.8 % (37.0-47.0); Mean Corp Hgb Conc. 33.5 g/dL (33.0-37.0); Mean Corpuscular Hgb 30.6 pg (27.0-31.0); Mean Corpuscular Volume 91.3 fL (81.0-99.0); Mean Platelet Volume 10.7 fL (7.4-10.4); Platelet Count 210 10^3/uL (130-400); Red Blood Cell Count 3.92 10^6/uL (4.20-5.40); Red Cell Dist. Width 12.9 % (11.5-14.5); White Blood Cell Count 4.6 10^3/uL (4.8-10.8)
[2023-11-17 08:01] LABS: Troponin I < 0.012 ng/ml
[2023-11-17] MEDS: LIPITOR 10 MG PO (08:02)
[2023-11-17] MEDS: NEURONTIN 300 MG PO (08:02)
[2023-11-17] MEDS: OSCAL 500 + D 500 MG PO (08:02)
[2023-11-17] MEDS: HEPARIN 5000 UNITS SC (08:02)
[2023-11-17] MEDS: THERAGRAN 1 TABLET PO (08:02)
[2023-11-17] MEDS: COLACE 100 MG PO (08:02)
[2023-11-17] MEDS: INDERAL LA 80 MG PO (08:02)
[2023-11-17 08:22] LABS: Blood Urea Nitrogen 14 mg/dl (7-17); Calcium 9.9 mg/dl (8.4-10.2); Carbon Dioxide 33 mmol/L (22-30); Chloride 102 mmol/L (98-107); Estimated Creatinine Clearance 85 ml/min; Glucose 103 mg/dl (70-99); Magnesium 1.8 mg/dl (1.6-2.3); Potassium 4.3 mmol/L (3.5-5.1); Sodium 141 mmol/L (135-145); eGFR > 60.00
[2023-11-17 09:27] VITALS: BP 126/76; PULSE 84
--- NOTE | 2023-11-17 09:41 | W.PN.VS ---
Addendum entered and electronically signed by Rich Alfaro MD 11/17/23 09:55:
Seen and examined with ROSA Hameed. Agree with findings as noted below. Patient overall feels much better. No complaints. She notes her left arm preoperative symptoms are significantly improved. Denies any chest pain or shortness of breath. Left
axillary incision clean dry and intact. No hematoma. Good range of motion left upper extremity. Left hand is pink and warm and well-perfused with palpable radial pulse. Plan/as discussed and noted below.
Original Note:
Today's Communication / Plan
-
Patient seen evaluated bedside with Dr. Rich Alfaro, below plan reviewed with attending.
Assessment/Plan
-
POD #4 left first rib resection
Plan:
-Continue current pain management regimen
-P.o. Tylenol as needed
-OT/PT
-Out of bed/ambulate
-Discharge today
Subjective Data
-
Date of Service: November 17, 2023
Patient seen and examined at bedside, she offers no complaints and continues to report great improvement in left shoulder movement and pain. 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
that this has happened to her in the past which is why she was prescribed Inderal one of her home medications. She denies accompanying chest pain, shortness of breath, chest pressure, radiating arm pain, or unusual jaw pain. She states episode was
similar to all her past episodes which usually resolves on its own and just feels like a slight flutter. Currently she has no complaints.
Objective Data
-
Vital Signs
Temp Pulse Resp BP Pulse Ox
98.2 F 74 18 134/79 94
11/17/23 07:22 11/17/23 07:22 11/17/23 07:22 11/17/23 07:22 11/17/23 08:00
Intake and Output
11/16/23 11/17/23 11/18/23
06:59 06:59 06:59
Intake Total 1520 / 1520 420 / 420
Output Total
Balance 1490 / 1490 420 / 420
Intake:
Oral fluids 1040 / 1040 420 / 420
IV fluids (Total) 480 / 480
Output:
Drain Output (Total)
Left Chest Blaise-Flowers
Other:
Number of approximated MODERATE 3 3
amounts of urine
Lab Results
11/17/23 07:25
11/17/23 07:25
Calcium 9.9 mg/dl (8.4-10.2) 11/17/23 07:25
Phosphorus 2.8 mg/dl (2.5-4.5) 11/13/23 14:19
Magnesium 1.8 mg/dl (1.6-2.3) 11/17/23 07:25
Physical Exam
-
AAOx3
No tachypnea on room air
No tachycardia at this time
Axillary surgical site clean, dry, intact. No drainage noted. ELIANA drain removal dressing CDI.
Left hand warm, palpable radial pulse
--- NOTE | 2023-11-17 11:11 | CM ---
Case management following for discharge planning
Chart reviewed. Met with pt at bedside
Poss discharge today
Will have ride home with sister
PT - recs outpatient PT - will need Rx
Discussed IMM
Plan - anticipate home with outpatient PT when medically ready
[2023-11-17 11:22] VITALS: BP 110/70
[2023-11-17 11:52] LABS: Glucose - Point of Care 85 mg/dl (70-99)
--- NOTE | 2023-11-17 13:46 | W.[place]-PDMP ---
[place]-PDMP
-
Checked the [place]- Prescription Drug Monitoring Program website, no red flags identified; safe to proceed with prescription. Additionally, spoke to Dr. Morgan's office staff Luiza, this is the patient's pain management clinic, and localized that I
would be prescribing a short duration of p.o. Dilaudid for her immediate postoperative pain management. Patient states she only has a few Percocets left from her most recent prescription from Dr. Morgan's office and she vocalized understanding
that she is not to take that medication while taking the narcotic pain medication I prescribed. Additionally, we have instructed her to hold her home medication of Zanaflex until she is no longer requiring the p.o. Dilaudid narcotic medication.
She vocalized understanding of all instructions and all of this was relayed to Dr. Morgan's office.
--- NOTE | 2023-11-17 13:49 | W.DS.TRANS ---
DC Summary - Sports Medicine Specialist
-
Discharge Instructions:
Discharge Diagnosis/Procedures Video-assisted left transaxillary first rib
resection
Diet As tolerated,Diabetic, Carb Controlled
Activity No strenuous activity
Driving Restrictions Not until seen by your Dr
Bathing Restrictions OK to Shower
Other Services PT
Instructions:
Stand-Alone Forms: DC Instr - Vascular OR
Changes to Home Medications: Yes
Discharge Medications:
DC Medications w/original date entered in [employer]
rizatriptan 10 mg tablet (Maxalt) 10 mg PO DAILYPRN PRN migraine 04/07/18
duloxetine 60 mg capsule,delayed release 60 mg PO HS Depression 09/13/19
atorvastatin 10 mg tablet 10 mg PO DAILY High cholesterol 04/21/21
gabapentin 300 mg capsule 300 mg PO DAILY NERVE PAIN 08/09/21
metformin 500 mg tablet,extended release 24 hr 1,000 mg PO QPM Diabetes 08/09/21
polyvinyl alcohol-povidone (PF) 1.4 %-0.6 % eye drops in a dropperette (Refresh Classic (PF)) 1 drops BOTH EYES Q2HPRN PRN dry eye 08/09/21
calcium carbonate 600 mg-vitamin D3 20 mcg (800 unit) chewable tablet (Caltrate 600 plus D) 1 tab PO BID Supplement ##0 08/16/21
tizanidine 4 mg tablet 4 mg PO BID nerve pain 08/16/21
simethicone 125 mg capsule (Gas Relief Extra Strength) 125 mg PO DAILYPRN PRN gas 08/18/21
denosumab 60 mg/mL subcutaneous syringe (Prolia) 60 mg SC [id number] osteoporosis 02/09/22
gabapentin 300 mg capsule 600 mg PO HS NERVE PAIN 02/09/22
multivitamin 1 tab PO DAILY Supplement 02/09/22
ondansetron HCl 4 mg tablet 4 mg PO PRN PRN nausea from migraine 02/09/22
lidocaine 5 % topical patch 1 patch topical DAILY PRN neck/spine prn pain 01/30/23
oxycodone-acetaminophen 7.5 mg-325 mg tablet (Percocet) 1 tab PO DAILY PRN pain 03/02/23
docusate sodium 100 mg tablet (Stool Softener) 100 mg PO BID Constipation 11/01/23
famotidine 20 mg tablet (Pepcid) 20 mg PO PRN PRN GERD 11/01/23
propranolol 80 mg capsule,24 hr,extended release (Inderal LA) 80 mg PO DAILY Heart Disease/Condition 11/01/23
hydromorphone 2 mg tablet 2 mg PO Q4HPRN PRN moderate pain #24 tabs 11/17/23
Home Medication Changes
Held:
oxycodone-acetaminophen 7.5 mg-325 mg tablet (Percocet) 1 tab PO DAILY PRN pain 03/02/23
tizanidine 4 mg tablet 4 mg PO BID nerve pain 08/16/21
Started:
hydromorphone 2 mg tablet 2 mg PO Q4HPRN PRN moderate pain #24 tabs 11/17/23
Pending Results: No
--- NOTE | 2023-11-20 10:50 | W.PN.UPDATE ---
Update Note
Progress Note Update
CDI:
Physician Documentation Request
Admit Date: 11/13/23 07:49
Please review the following and provide your response in the progress notes.
Clinical Indicators:
The diagnosis of pleural effusion and atelectasis were included in the signed 11/14 CXR.
- 11/14 CXR 'Small left pleural effusion. Minor atelectasis at left lung base'
- 11/12-11/13 Incentive spirometry 1000ml
- RN assessments indicate shallow respiratory patterns
Please indicate in your progress notes if you are in agreement that the above diagnosis is valid for this patient:
____-atelectasis is a valid diagnosis
== END 2023-11-17 14:11 | disposition home or self-care (01) | DRG 29 ==
LOC: 2 SOUTH 07:49
PROVIDERS: Nurse Practitioner; Nurse Practitioner Acute Care; Student in an Organized Health Care Education/Training Program; ADMITTING PHYSICIAN Surgery Vascular Surgery; CONSULT PHYSICIAN Internal Medicine Critical Care Medicine; FAMILY PHYSICIAN Emergency Medicine
PROC: 0PB10ZZ Excision of 1 to 2 Ribs, Open Approach (ICD-10-PCS; 2023-11-13)
DX: G54.0 Brachial plexus disorders (principal); J98.11 Atelectasis; G43.909 Migraine, unspecified, not intractable, without status migrainosus; K21.9 Gastro-esophageal reflux disease without esophagitis; M79.7 Fibromyalgia; M81.0 Age-related osteoporosis without current pathological fracture; R73.03 Prediabetes; E78.00 Pure hypercholesterolemia, unspecified; F32.A Depression, unspecified; K29.70 Gastritis, unspecified, without bleeding; Z79.84 Long term (current) use of oral hypoglycemic drugs; Z79.899 Other long term (current) drug therapy
CPT/HCPCS: 88304; 21705; 36415; 71045; 71046; 80048; 82962; 83735; 84100; 84484; 85025; 85027; 85610; 85730; 87070; 93005; 97162; 97166; 97530

== ENCOUNTER 2023-12-04 14:43 | Outpatient (RCR) | payer MEDICARE, OTHER, SELFPAY | END 2023-12-04 23:59 | disposition home or self-care (01) | LOC: RPT 14:43 | PROVIDERS: ATTENDING PHYSICIAN Surgery Vascular Surgery; FAMILY PHYSICIAN Emergency Medicine | DX: Z47.89 Encounter for other orthopedic aftercare (principal); M54.14 Radiculopathy, thoracic region; M25.512 Pain in left shoulder; Z73.6 Limitation of activities due to disability; M62.81 Muscle weakness (generalized) | CPT/HCPCS: 97010; 97110; 97140; 97162; 97530 ==

== ENCOUNTER → 2023-12-30 13:37 | Outpatient (REF) | payer MEDICARE, OTHER, SELFPAY | LOC: MRI 3T 13:37 | PROVIDERS: ATTENDING PHYSICIAN Psychiatry & Neurology Neurology; FAMILY PHYSICIAN Emergency Medicine | DX: G54.0 Brachial plexus disorders (principal); M54.14 Radiculopathy, thoracic region | CPT/HCPCS: 72146 ==

== ENCOUNTER 2024-01-03 09:53 | Outpatient (RCR) | payer MEDICARE, OTHER, SELFPAY | END 2024-01-03 23:59 | disposition home or self-care (01) | LOC: RPT 09:53 | PROVIDERS: ATTENDING PHYSICIAN Surgery Vascular Surgery; FAMILY PHYSICIAN Emergency Medicine | DX: Z47.89 Encounter for other orthopedic aftercare (principal); M54.14 Radiculopathy, thoracic region; M25.512 Pain in left shoulder; Z73.6 Limitation of activities due to disability; M62.81 Muscle weakness (generalized); M47.812 Spondylosis without myelopathy or radiculopathy, cervical region; M19.012 Primary osteoarthritis, left shoulder; R26.89 Other abnormalities of gait and mobility | CPT/HCPCS: 97010; 97110; 97112; 97140 ==

== ENCOUNTER 2024-01-29 10:02 | Outpatient (RCR) | payer MEDICARE, OTHER, SELFPAY | END 2024-01-29 23:59 | disposition home or self-care (01) | LOC: RPT 10:02 | PROVIDERS: ATTENDING PHYSICIAN Surgery Vascular Surgery; FAMILY PHYSICIAN Emergency Medicine | DX: Z47.89 Encounter for other orthopedic aftercare (principal); M54.14 Radiculopathy, thoracic region; M25.512 Pain in left shoulder; Z73.6 Limitation of activities due to disability; M62.81 Muscle weakness (generalized); M54.2 Cervicalgia | CPT/HCPCS: 97010; 97110; 97112; 97140; 97530 ==

== ENCOUNTER 2024-02-07 13:36 | Outpatient (RCR) | payer MEDICARE, OTHER, SELFPAY | END 2024-02-07 23:59 | disposition home or self-care (01) | LOC: RPT 13:36 | PROVIDERS: ATTENDING PHYSICIAN Surgery Vascular Surgery; FAMILY PHYSICIAN Emergency Medicine | DX: Z47.89 Encounter for other orthopedic aftercare (principal); M54.14 Radiculopathy, thoracic region; M25.512 Pain in left shoulder; Z73.6 Limitation of activities due to disability; M62.81 Muscle weakness (generalized); M54.2 Cervicalgia; R26.89 Other abnormalities of gait and mobility | CPT/HCPCS: 97110 ==

== ENCOUNTER → 2024-03-19 09:17 | Outpatient (REF) | payer MEDICARE, OTHER, SELFPAY ==
[2024-03-19 10:21] LABS: % Basophils 1.2 % (0-2); % Eosinophils 2.6 % (0-6); % Immature Granulocytes 0.9 % (0-0.5); % Lymphocytes 40.1 % (20.5-51.1); % Monocytes 7.9 % (1.7-9.3); % Neutrophils 47.3 % (42.2-75.2); Absolute Basophils 0.1 10^3/uL (0-0.2); Absolute Eosinophils 0.1 10^3/uL (0-0.7); Absolute Lymphocytes 1.7 10^3/uL (1.2-3.4); Absolute Monocytes 0.3 10^3/uL (0.1-0.6); Hematocrit 43.2 % (37.0-47.0); Hemoglobin 14.3 g/dL (12.0-16.0); Mean Corp Hgb Conc. 33.1 g/dL (33.0-37.0); Mean Corpuscular Hgb 30.3 pg (27.0-31.0); Mean Corpuscular Volume 91.5 fL (81.0-99.0); Mean Platelet Volume 10.9 fL (7.4-10.4); Nucleated Red Blood Cells % 0 %; Platelet Count 216 10^3/uL (130-400); Red Blood Cell Count 4.72 10^6/uL (4.20-5.40); White Blood Cell Count 4.3 10^3/uL (4.8-10.8)
[2024-03-19 10:37] LABS: Erythrocyte Sed Rate 9 mm/hour (0-20)
[2024-03-19 10:50] LABS: ALT (SGPT) 29 U/L (0-35); AST (SGOT) 34 U/L (14-36); Albumin 4.7 g/dl (3.5-5.0); Alkaline Phosphatase 56 U/L (38-126); Blood Urea Nitrogen 16 mg/dl (7-17); Calcium 10.2 mg/dl (8.4-10.2); Carbon Dioxide 32 mmol/L (22-30); Chloride 99 mmol/L (98-107); Glucose 98 mg/dl (70-99); Potassium 5.1 mmol/L (3.5-5.1); Sodium 138 mmol/L (135-145); Total Bilirubin 0.5 mg/dl (0.2-1.3); Total Protein 7.2 g/dl (6.3-8.2); eGFR > 60.00
[2024-03-19 10:52] LABS: C-Reactive Protein < 5.00 mg/L (0.0-10.00)
[2024-03-19 11:09] LABS: Vitamin D, 25-OH*** 45.5 ng/mL (30-80)
[2024-03-19 11:20] LABS: Hepatitis B Surface Antigen Negative (Negative)
[2024-03-19 11:38] LABS: Hepatitis B Core Ab, Total Negative (Negative); Hepatitis B Surface Antibody Negative; Hepatitis C Antibody Negative (Negative)
[2024-03-21 14:41] LABS: Quantiferon TB Gold Plus Negative (Negative)
== END ==
LOC: REG 09:17
PROVIDERS: ATTENDING PHYSICIAN Internal Medicine Rheumatology; FAMILY PHYSICIAN Emergency Medicine
DX: E55.9 Vitamin D deficiency, unspecified (principal); M06.00 Rheumatoid arthritis without rheumatoid factor, unspecified site; M81.0 Age-related osteoporosis without current pathological fracture
CPT/HCPCS: 36415; 80053; 82306; 85025; 85652; 86140; 86480; 86704; 86706; 86803; 87340

== ENCOUNTER 2024-03-29 07:08 | Outpatient (RCR) | payer MEDICARE, OTHER, SELFPAY | END 2024-03-29 23:59 | disposition home or self-care (01) | LOC: RPT 07:08 | PROVIDERS: ATTENDING PHYSICIAN Surgery Vascular Surgery; FAMILY PHYSICIAN Emergency Medicine | DX: Z47.89 Encounter for other orthopedic aftercare (principal); M54.14 Radiculopathy, thoracic region; M25.512 Pain in left shoulder; M62.81 Muscle weakness (generalized); Z73.6 Limitation of activities due to disability; M54.2 Cervicalgia; R26.89 Other abnormalities of gait and mobility | CPT/HCPCS: 97110; 97112; 97530 ==

== ENCOUNTER 2024-04-29 09:03 | Outpatient (RCR) | payer MEDICARE, OTHER, SELFPAY | END 2024-04-29 23:59 | disposition home or self-care (01) | LOC: RPT 09:03 | PROVIDERS: ATTENDING PHYSICIAN Surgery Vascular Surgery; FAMILY PHYSICIAN Emergency Medicine | DX: Z47.89 Encounter for other orthopedic aftercare (principal); M54.14 Radiculopathy, thoracic region; M25.512 Pain in left shoulder; M62.81 Muscle weakness (generalized); Z73.6 Limitation of activities due to disability; M54.2 Cervicalgia; R26.89 Other abnormalities of gait and mobility | CPT/HCPCS: 97110 ==

== ENCOUNTER 2024-05-17 09:01 | Outpatient (RCR) | payer MEDICARE, OTHER, SELFPAY | END 2024-05-17 23:59 | disposition home or self-care (01) | LOC: RPT 09:01 | PROVIDERS: ATTENDING PHYSICIAN Surgery Vascular Surgery; FAMILY PHYSICIAN Emergency Medicine | DX: Z47.89 Encounter for other orthopedic aftercare (principal); M54.14 Radiculopathy, thoracic region; M25.512 Pain in left shoulder; M62.81 Muscle weakness (generalized); Z73.6 Limitation of activities due to disability; M54.2 Cervicalgia; R26.89 Other abnormalities of gait and mobility | CPT/HCPCS: 97110; 97112 ==

== ENCOUNTER 2024-06-21 07:10 | Outpatient (RCR) | payer MEDICARE, OTHER, SELFPAY | END 2024-06-21 23:59 | disposition home or self-care (01) | LOC: RPT 07:10 | PROVIDERS: ATTENDING PHYSICIAN Surgery Vascular Surgery; FAMILY PHYSICIAN Emergency Medicine | DX: Z47.89 Encounter for other orthopedic aftercare (principal); M54.14 Radiculopathy, thoracic region; M25.512 Pain in left shoulder; M62.81 Muscle weakness (generalized); Z73.6 Limitation of activities due to disability; M54.2 Cervicalgia; R26.89 Other abnormalities of gait and mobility | CPT/HCPCS: 97110; 97112; 97140; 97530 ==

== ENCOUNTER 2024-07-31 09:33 | Outpatient (RCR) | payer MEDICARE, OTHER, SELFPAY | END 2024-07-31 23:59 | disposition home or self-care (01) | LOC: RPT 09:33 | PROVIDERS: ATTENDING PHYSICIAN Surgery Vascular Surgery; FAMILY PHYSICIAN Emergency Medicine | DX: Z47.89 Encounter for other orthopedic aftercare (principal); M54.14 Radiculopathy, thoracic region; M25.512 Pain in left shoulder; M62.81 Muscle weakness (generalized); Z73.6 Limitation of activities due to disability; M54.2 Cervicalgia; R26.89 Other abnormalities of gait and mobility | CPT/HCPCS: 97110; 97530 ==

== ENCOUNTER 2024-08-07 14:58 | Outpatient (RCR) | payer MEDICARE, OTHER, SELFPAY | END 2024-08-07 23:59 | disposition home or self-care (01) | LOC: RPT 14:58 | PROVIDERS: ATTENDING PHYSICIAN Surgery Vascular Surgery; FAMILY PHYSICIAN Emergency Medicine | DX: Z47.89 Encounter for other orthopedic aftercare (principal); M54.14 Radiculopathy, thoracic region; M25.512 Pain in left shoulder; M62.81 Muscle weakness (generalized); Z73.6 Limitation of activities due to disability; M54.2 Cervicalgia; R26.89 Other abnormalities of gait and mobility | CPT/HCPCS: 97110; 97112; 97140; 97530 ==

== ENCOUNTER → 2024-08-12 13:05 | Outpatient (REF) | payer MEDICARE, OTHER, SELFPAY ==
[2024-08-12 15:17] LABS: ALT (SGPT) 29 U/L (0-35); AST (SGOT) 26 U/L (14-36)
== END ==
LOC: REG 13:05
PROVIDERS: ATTENDING PHYSICIAN Podiatrist; FAMILY PHYSICIAN Emergency Medicine
DX: B35.1 Tinea unguium (principal)
CPT/HCPCS: 36415; 84450; 84460

== ENCOUNTER → 2024-09-17 09:22 | Outpatient (REF) | payer MEDICARE, OTHER, SELFPAY ==
[2024-09-17 10:12] LABS: Hematocrit 42.8 % (37.0-47.0); Hemoglobin 14.2 g/dL (12.0-16.0); Mean Corp Hgb Conc. 33.2 g/dL (33.0-37.0); Mean Corpuscular Volume 93.4 fL (81.0-99.0); Nucleated Red Blood Cells % 0 %; Platelet Count 258 10^3/uL (130-400); Red Cell Dist. Width 13.3 % (11.5-14.5)
[2024-09-17 11:05] LABS: C-Reactive Protein < 5.00 mg/L (0.0-10.00)
[2024-09-17 11:20] LABS: ALT (SGPT) 23 U/L (0-35); AST (SGOT) 25 U/L (14-36); Albumin 4.5 g/dl (3.5-5.0); Alkaline Phosphatase 36 U/L (38-126); Blood Urea Nitrogen 20 mg/dl (7-17); Calcium 10.0 mg/dl (8.4-10.2); Carbon Dioxide 28 mmol/L (22-30); Chloride 107 mmol/L (98-107); Glucose 89 mg/dl (70-99); Potassium 4.7 mmol/L (3.5-5.1); Sodium 138 mmol/L (135-145); Total Protein 6.9 g/dl (6.3-8.2); eGFR > 60.00
== END ==
LOC: REG 09:22
PROVIDERS: ATTENDING PHYSICIAN Internal Medicine Rheumatology; FAMILY PHYSICIAN Emergency Medicine
DX: M06.00 Rheumatoid arthritis without rheumatoid factor, unspecified site (principal)
CPT/HCPCS: 36415; 80053; 85025; 85652; 86140

== ENCOUNTER → 2024-11-17 09:24 | Outpatient (REF) | payer MEDICARE, OTHER, SELFPAY | LOC: PAVMRI 09:24 | PROVIDERS: ATTENDING PHYSICIAN Psychiatry & Neurology Neurology; FAMILY PHYSICIAN Family Medicine | DX: M54.16 Radiculopathy, lumbar region (principal) | CPT/HCPCS: 72148 ==

== ENCOUNTER → 2024-11-20 09:11 | Outpatient (REF) | payer MEDICARE, OTHER, SELFPAY ==
[2024-11-20 11:09] LABS: Iron 132 ug/dl (37-170)
[2024-11-20 11:19] LABS: Total Iron Binding Capacity 352 ug/dl (265-497)
[2024-11-20 12:35] LABS: C-Reactive Protein < 5.00 mg/L (0.0-10.00)
[2024-11-20 12:53] LABS: Vitamin D, 25-OH*** 30.4 ng/mL (30-80)
[2024-11-20 13:42] LABS: Folate 18.3 ng/ml (2.76-20); Vitamin B12 > 1000 pg/ml (239-931)
[2024-11-21 00:17] LABS: CRP, Ultra Sensitive 0.32 mg/L (0.30-5.00)
[2024-11-21 13:29] LABS: Glycohemoglobin (HgbA1c) 5.9 % (4.0-5.6)
[2024-11-21 14:56] LABS: Lyme Antibody Screen, EIA Negative (Negative)
[2024-11-21 23:27] LABS: ANA, IgG Reflex to HEp-2 None Detected (None Detected)
[2024-11-22 04:07] LABS: Copper, Serum 98.2 ug/dL (80.0-155.0)
[2024-11-22 08:30] LABS: Serine Protease-3, IgG 0 AU/mL (0-19)
[2024-11-22 11:37] LABS: Syphilis/T. pallidum Ab Reflex Negative (Negative)
[2024-11-22 23:07] LABS: SSA 52 (Ro)(ENA) Ab, IgG 1 AU/mL (0-40); SSA 60 (Ro)(ENA) Ab, IgG 1 AU/mL (0-40); SSB (La)(ENA) Ab, IgG 0 AU/mL (0-40)
== END ==
LOC: REG 09:11
PROVIDERS: ATTENDING PHYSICIAN Psychiatry & Neurology Neurology; FAMILY PHYSICIAN Family Medicine
DX: G60.9 Hereditary and idiopathic neuropathy, unspecified (principal); M54.16 Radiculopathy, lumbar region; G54.0 Brachial plexus disorders; R73.03 Prediabetes; D50.9 Iron deficiency anemia, unspecified; M81.0 Age-related osteoporosis without current pathological fracture
CPT/HCPCS: 36415; 82085; 82164; 82306; 82525; 82550; 82607; 82652; 82746; 82784; 83036; 83516; 83540; 83550; 84155; 84165; 84207; 84425; 84443; 84446; 85652; 86038; 86140; 86141; 86231; 86235; 86618; 86780

== ENCOUNTER 2025-01-29 09:32 | Outpatient (RCR) | payer MEDICARE, OTHER, SELFPAY | END 2025-01-29 23:59 | disposition home or self-care (01) | LOC: RPT 09:32 | PROVIDERS: ATTENDING PHYSICIAN Psychiatry & Neurology Neurology; FAMILY PHYSICIAN Family Medicine | DX: M54.16 Radiculopathy, lumbar region (principal); M46.96 Unspecified inflammatory spondylopathy, lumbar region; S76.312D Strain of muscle, fascia and tendon of the posterior muscle group at thigh level, left thigh, subsequent encounter; Z73.6 Limitation of activities due to disability; R26.89 Other abnormalities of gait and mobility; R26.2 Difficulty in walking, not elsewhere classified; M62.81 Muscle weakness (generalized); G89.29 Other chronic pain; M48.56XD Collapsed vertebra, not elsewhere classified, lumbar region, subsequent encounter for fracture with routine healing; M47.27 Other spondylosis with radiculopathy, lumbosacral region; M48.07 Spinal stenosis, lumbosacral region | CPT/HCPCS: 97110; 97112; 97162; 97530 ==

== ENCOUNTER 2025-03-05 07:20 | Outpatient (RCR) | payer MEDICARE, OTHER, SELFPAY | END 2025-03-05 23:59 | disposition home or self-care (01) | LOC: RPT 07:20 | PROVIDERS: ATTENDING PHYSICIAN Psychiatry & Neurology Neurology; FAMILY PHYSICIAN Family Medicine | DX: M54.16 Radiculopathy, lumbar region (principal); M46.96 Unspecified inflammatory spondylopathy, lumbar region (principal); Z73.6 Limitation of activities due to disability; S76.312D Strain of muscle, fascia and tendon of the posterior muscle group at thigh level, left thigh, subsequent encounter; R26.89 Other abnormalities of gait and mobility; R26.2 Difficulty in walking, not elsewhere classified; M62.81 Muscle weakness (generalized); G89.29 Other chronic pain; M48.56XD Collapsed vertebra, not elsewhere classified, lumbar region, subsequent encounter for fracture with routine healing; M47.27 Other spondylosis with radiculopathy, lumbosacral region; M48.07 Spinal stenosis, lumbosacral region | CPT/HCPCS: 97010; 97110; 97112; 97116 ==